=== PATIENT | male | born 1965 | race Caucasian/White ===

== ENCOUNTER 2023-12-16 07:27 | Day surgery (SDC) | payer BC ==
[~2023-12-16] VITALS: Ht 190.5 cm; Wt 186.0 kg
[2023-12-16] MEDS ORDERED: fentaNYL CITRATE/PF 100 MCG/2 ML AMP ONE (07:44)
[2023-12-16] MEDS ORDERED: MIDAZOLAM HCL 5 MG/5 ML VIAL ONE (07:44)
[2023-12-16 13:51] VITALS: O2SAT 96
[2023-12-16 16:14] VITALS: BP_SYST 107; PULSE 70; RESP 17
== END 2023-12-16 10:19 | disposition home or self-care (01) ==
LOC: SDS 07:27 → SMU 07:29 → SDS 10:19
PROVIDERS: ATTEND Internal Medicine
DX: Z12.11 Encounter for screening for malignant neoplasm of colon (principal); K57.30 Diverticulosis of large intestine without perforation or abscess without bleeding; K64.8 Other hemorrhoids; I10 Essential (primary) hypertension; E78.5 Hyperlipidemia, unspecified; Z98.890 Other specified postprocedural states; Z87.891 Personal history of nicotine dependence; Z79.899 Other long term (current) drug therapy
CPT/HCPCS: 45378; 99152; G0378; J2250; J3010